=== PATIENT | female | born 1965 | race Caucasian/White ===

== ENCOUNTER → 2016-10-20 | Outpatient (CLI) | payer OTHER ==
[~2016-10-20] MED LIST: ASPIRIN (CHILDR81 MG PO; BRILINTA90 MG PO; LIPITOR80 MG PO; LOPRESSOR25 MG PO; METFORMIN HCL500 MG PO; THERAGRAN-M1 TAB PO
== END | disposition disaster alternative care site (69) ==
LOC: GBCOE 09:11
DX: Z12.31 Encounter for screening mammogram for malignant neoplasm of breast (principal)
CPT/HCPCS: G0202

== ENCOUNTER 2017-03-19 21:17 | Inpatient (IN) | payer OTHER ==
[~2017-03-19] VITALS: Ht 167.6 cm; Wt 74.4 kg
--- NOTE | ~2017-03-19 | ECHO ---
Transthoracic Echocardiography Report (TTE) Demographics Patient Name LATISHA HURD Date of Study 03/20/2017 Patient Number [id number] Visit Number [id number] Date of 1965 Room Number G6328 Gender Female Number Age 52 year(s) Referring Jasper Chavarria MD Forming Process Worker Anca Amador RVT Physician Shahid Cabello MD Physician Interpreting Erasmo Guzman Asbestos Wire Finisher Physician Gisella ANNE Supervising Ordering MD/MLP Physician Nurse Stress Us Administrative Law Judge Conclusions Contractility Score Summary Normal Left Ventricular contractility was noted. Summary The estimated left ventricular ejection fraction is 50-55%. Normal left ventricle size and function. Diastolic assessment reveals normal relaxation. Trivial pericardial effusion measuring .43 cm. Procedure Type of Study TTE procedure:2D Echocardiogram. Procedure Date Date: 03/20/2017 Start: 07:55 AM Study Location: Inpatient Portable Technical Quality: Adequate visualization Indications:Chest pain. Appropriate Use Criteria: 9 Patient Status: Routine HR: 61 bpm BP: 147/81 mmHg Allergies - Cephalosporines. - Latex. M-Mode/2D Measurements LV Diastolic Dimension: 4.01 cm LV Systolic Dimension: 2.82 cm LV Septum Diastolic: 1.12 cm LV PW Diastolic: 0.92 cm AO Root Dimension: 2 cm Cardiac Output: 3.24 l/min LA Dimension: 2.3 cm LVOT: 2 cm LVOT VTI: 16.9 cm RV Base: 2.64 cm LV Stroke volume: 53.07 ml RV Length: 6.01 cm TAPSE: 1.97 cm TDI-S': 13.7 cm/s Doppler Measurements AV Peak Velocity: 1.53 m/s MV Peak E-Wave: 0.63 m/s AV Peak Gradient: 9.36 mmHg MV Peak A-Wave: 0.45 m/s AV Mean Gradient: 4 mmHg MV E/A Ratio: 1.38 LVOT Peak Velocity: 0.71 m/s MV P1/2t: 122 msec PV Peak Velocity: 0.91 m/s E' Septal Velocity: 0.07 m/s PV Peak Gradient: 3.31 mmHg E' Lateral Velocity: 0.15 m/s A' Septal Velocity: 0.11 m/s A' Lateral Velocity: 0.09 m/s Findings Left Ventricle Normal left ventricle size and function. Diastolic assessment reveals normal relaxation. Right Ventricle Normal right ventricle structure and function. Left Atrium Normal left atrial size. Right Atrium IVC measures 1.27 cm with inspiratory collapse. Mitral Valve Normal mitral valve structure and function. Aortic Valve Normal aortic valve structure and function. Tricuspid Valve Normal tricuspid valve structure and function. Pulmonic Valve Normal pulmonic valve structure and function. Pericardial Effusion Trivial pericardial effusion measuring .43 cm. Miscellaneous Visualized portions of the aortic root and ascending aorta appear normal in size. Pleural Effusion No evidence of pleural effusion. Contractility Score LV regional wall motion:(0-Non visualized 1-Normal 2-Hypokinesis 3-Akinesis 4-Dyskinesis 5-Aneurysm) Signature dtt: Opal Zimmerman dtd: 03/20/17 0755 Physician Self Edit
--- NOTE | ~2017-03-19 | CATH ---
Cardiac Diagnostic + PCI Report Demographics Patient Name VANNESSA Singh Gender Female Date of 1965 Age 52 year(s) Patient Number [id number] Date of Study 03/20/2017 Visit Number [id number] Room Number G6[address] [place] [id number] Ht 167.64 cm Wt 76 kg Referring Jasper Chavarria MD Primary Physician Physician Performing Kevin Secondary Physician Physician Mae ANNE Diagnostic Kevin Assisting Physician Physician Mae ANNE Interventional Kevin Physician Shucker Physician Mae ANNE Findings and Conclusions Diagnostic Findings and Conclusion Severe 1 vessel CAD RCA 99% Diagnostic Recommendations PCI RCA Interventional Findings and Conclusion PCI RCA 99% to 0% with ÁNGELA and fernando 3 flow Interventional Recommendations DAPT x 1 yr Aggressive secondary measures Evaluate significance of LCFX/OM lesion in 3 months Procedure Description The patient was brought to the diagnostic cardiac catheterization-EP laboratory in the fasting, non-sedated state. Informed consent was obtained in the written and verbal form after the risks and benefits were explained. The patient had no further questions and agreed to proceed. The planned puncture-incision site(s) were shaved and prepped with ChloraPrep and draped in the usual sterile manner. Conscious sedation, supplemental oxygen, and pain control medications were delivered by a registered nurse under physician guidance. Surface ECG rhythm, blood pressure measurement, and pulse oximetry were monitored throughout the procedure. Arterial access. The access site was infiltrated with lidocaine. The vessel was entered with the Seldinger technique. A sheath was advanced into the vessel and used for catheter placement. Selective left coronary angiography. A catheter was advanced into the left coronary vessel ostium under Fluoroscopic guidance. Contrast was injected by hand. Images were obtained in multiple projections. Selective right coronary angiography. A catheter was advanced into the right coronary vessel ostium under fluoroscopic guidance. Contrast was injected by hand. Images were obtained in multiple projections. Left heart catheterization. A catheter was advanced across the aortic valve to the left ventricle under fluoroscopic guidance. Resting hemodynamics were obtained. Stent Placement: A guiding catheter was used to intubate the vessel. A 0.14 wire was used to cross the lesion. A Drug Eluting Stent was placed. Post placement angiograms were performed. Arterial artery hemostasis was achieved. The patient was transferred to a regular nursing floor via cart accompanied by a nurse. The patient left the laboratory in stable condition. Diagnostic Cath Status: Urgent Interventional Cath Status: Urgent Procedure Procedure Type Diagnostic procedure:Angiography:, Coronary Angios /[facility] PCI procedure:Drug Eluting Coronary Stent:, RCA Indications: NSTEMI and Abnormal enzymes. The procedure was explained in detail to the patient. Risks, complications and alternative treatments were reviewed. Written consent was obtained. Medications Reviewed with Patient prior to Procedure. Angiographic Findings Dominance: Right Cardiac Arteries and Lesion Findings LMCA: Abnormal.luminal irregularities LAD: Abnormal.Type 1 vessel with luminal irregularities D1 larger than LAD, Distal 1/3 LAD is very small LCx: Abnormal.Prox 20% After 2 small OM's 60% Lesion on Prox CX: Proximal subsection.20% stenosis . Lesion on Mid CX: Mid subsection.60% stenosis . RCA: Abnormal.Prox 99% Fernando 3 Lesion on Prox RCA: Proximal subsection.99% stenosis 28 mm length reduced to 0%. Pre procedure FERNANDO III flow was noted. Post Procedure FERNANDO III flow was present. The guidewire cross was successful.A poor run off was present.The lesion was diagnosed as a high risk lesion.Culprit lesion. Devices used - Luge Wire .014 x 182. Number of passes: 1. - Emerge Balloon 2.5 x 20. 1 inflation(s) to a max pressure of: 10 elizabeth. - Promus Premier 3.0 x 28 Stent. 1 inflation(s) to a max pressure of: 16 elizabeth. - NC Emerge Balloon 3.25 x 12. 2 inflation(s) to a max pressure of: 20 elizabeth. Coronary Tree Procedure Data Procedure Date Date: 03/20/2017Start: 02:23 PMEnd: 03:14 PM Entry Locations - Retrograde Percutaneous access was performed through the Right Femoral artery (Primary location). A 7 Fr sheath was inserted. Hemostasis was successfully obtained using Perclose ProGlide (Correa). Closure Comments: deployed by eliane. Procedure Medications Order and Administration + + + + + !Time !Medication !Dosage !Route ! + + + + 03/20/2017 02:20 !Versed !1 mg !I.V. ! !PM ! ! ! ! + + + + + !03/20/2017 02:23 !Fentanyl !25 mcg !I.V. ! !PM ! ! ! ! + + + + + !03/20/2017 02:34 !Aggrastat (Tirofiban) !1875 !I.V. bolus ! !PM ! ! ! ! + + + + + 03/20/2017 02:34 !Heparin (ACC_3) !4500 units !I.V. bolus ! !PM ! ! ! ! + + + + + 03/20/2017 02:38 !Aggrastat (Tirofiban) !0.15 mcg/kg/min!I.V. drip ! !PM ! ! ! ! + + + + + !03/20/2017 03:06 !Heparin (ACC_3) ! !I.V. drip ! !PM ! ! ! ! + + + + + !03/20/2017 03:06 !Brilinta (Ticagrelor) !180 mg !P.O. ! !PM !(ACC_20) ! ! ! + + + + + Devices Used - A6 Fr. BS JR 4 Diag. Catheterwas used for:Right coronary angiography. - A6 Fr. BS JL 4 Diag. Catheterwas used for:Left coronary angiography. - A6 Fr. JR4 Guide Catheterwas used for:RCA Intervention. Contrast Material - Isovue [id number] ml Fluoroscopy Time: Diagnostic: 9:30 minutes. Total: 9:30 minutes. Fluoroscopy Dose: Diagnostic: 1770 mGy. Total: 1770 mGy. Estimated Blood Loss: 20 ml. Additional [facility] PCI Information PCI Indication:PCI for high risk Non-STEMI or unstable angina. Medical History Allergies - Cephalosporines. - Latex. Risk Factors The patient risk factors include:hypercholesterolemia, diet-treated diabetes mellitus, last creatinine: 0.6 mg/dl, creatinine clearance: 133.09 ml/min and dyslipidemia. Admission Data Admission Date: 03/20/2017 Admission Time: 12:35 AM Admit Source: Emergency department Clinical Evaluation Leading to Procedure - The patient's CAD presentation was assessed as: Non-STEMI. - The patient's anginal syndrome during the past two weeks was assessed as: Class IV according to the [place] Cardiovascular Society Classification System (CCS). [facility] Ventriculography Findings LVEDP 9 no gradient Hemodynamics Condition: Rest O2 Consumption: Estimated: 177.89Heart Rate: 65 bpm Pressures (mmHg) +-----+ + !Site !Pressure ! +-----+ + !LV !131/1 ,7 ! +-----+ + !LV !147/1 ,9 ! +-----+ + !AO !137/65 (97) ! +-----+ + !LV !140/-1 ,8 ! +-----+ + !AO !144/74 (103) ! +-----+ + !AO !162/66 (103) ! +-----+ + Valve Gradients and Areas + +---------+---------+---------+ +---------+ + !Valve !Peak !Mean !Area !Index !Flow !Source ! + +---------+---------+---------+ +---------+ + !Aortic !2 !0 ! ! ! ! ! + +---------+---------+---------+ +---------+ + !Aortic !2 !0 ! ! ! ! ! + +---------+---------+---------+ +---------+ + Shunts Oxygen Values O2 Capacity 184.96 O2 Consumption 177.89 Discharge Data Discharge Date: 03/21/2017 Hospital Status: Inpatient Signatures dtt: Mae Brown dtd: 03/20/17 1423 Physician Self Edit
--- NOTE | ~2017-03-19 | ER ---
PATIENT'S NAME: LATISHA HURD [facility] AGE: 52 Y [address] ROOM: [place] [address] LOCATION: GPCU ADMIT DATE: 03/20/2017 ER/Outpatient Report DISCHARGE DATE: FAMILY PHYSICIAN: Ana Hutchinson MD ATTENDING PHYSICIAN: HUSSEIN KEY Admission date and time documented in medical record. I saw the patient at 2125 hours. CHIEF COMPLAINT: Mid anterior chest pain radiating through to her back into her shoulders bilaterally accompanied with shortness of breath, diaphoresis, and nausea. HISTORY OF PRESENT ILLNESS: The patient is a 52-year-old female, who was at home, developed mid anterior chest pain radiating through to her mid back between her shoulder blades and up into both shoulders. This started about 45 minutes prior to admission in the emergency room. She said it was an 8/10. Had accompanying nausea without vomiting. Some shortness of breath, diaphoresis, lightheadedness, or dizziness. No syncope or near syncope. No fall or trauma. No headache; eyes, ears, nose, throat, neck, or spine pain. No recent colds, coughs, flus, fever, chills, or sweats. No abdominal pain. No diarrhea. No urinary symptoms. No joint or muscle swelling, redness, or pain. No skin eruptions or rash. Does have a history of pgs-cvmtuvs-wtnqteqrn diabetes mellitus, hyperparathyroidism. No neuro changes or psych issues. HOME MEDICATIONS: None. ALLERGIES: KEFLEX, VICODIN, BEE STINGS. SOCIAL HISTORY: Nonsmoker. Occasional intake of alcohol. 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 OPERATIONS: Tonsillectomy, adenoidectomy, back surgery, eye surgery, right breast lumpectomy, lumbar laminectomy incision, parathyroid adenoma. REVIEW OF SYSTEMS: PATIENT'S NAME: LATISHA HURD [facility] AGE: 52 Y [address] ROOM: [place] [address] LOCATION: GPCU ADMIT DATE: 03/20/2017 ER/Outpatient Report DISCHARGE DATE: FAMILY PHYSICIAN: Ana Hutchinson MD ATTENDING PHYSICIAN: HUSSEIN KEY All systems reviewed by me are negative with the exception of those discussed in the history of present illness. PHYSICAL EXAMINATION: VITAL SIGNS: Temperature 95.1, pulse 64, respirations 14, blood pressure 176/89, O2 sat on room air is 98%. HEAD: Normocephalic. EYES: Extraocular muscles intact. PERRL. Sclerae and conjunctivae clear, nonicteric. EARS, NOSE, THROAT: Clear. Mucous membranes moist. TEETH/JAW: Intact. NECK: No nuchal rigidity. No findings of adenopathy. No carotid bruits. No tenderness. SPINE: Nontender. No deformity. LUNGS: Clear. Good air flow. No rales, rhonchi, or wheezes. HEART: Regular. Pulses are palpable. No chest wall or ribcage pain to palpation. No deformity. ABDOMEN: Soft, nondistended, nontender. Good bowel tones. No organomegaly or abnormal mass palpable. PELVIS: Stable. EXTREMITIES: No peripheral edema, cyanosis, or deformity. NEUROVASCULAR: Intact. SKIN: Clear. No skin eruptions or rash. DIAGNOSTIC DATA: EKG showed sinus rhythm. No acute ST elevation, ischemic change, or arrhythmia x2, 2 hours apart. CMS was normal except for an elevated glucose at 215, elevated AST 103, elevated ALT 112. Magnesium is 2. CPK initially was 239, 2 hours later was 195. Initial CK-MB was elevated at 5.3, decreased in 2 hours to 4.5. Initial troponin was normal, less than 0.04. Two-hour troponin was elevated at 0.073. CRP was 1.05. TSH was 3.01. ProBNP was 64. D-dimer was normal at 0.19. White count is 7800, 42 segs, 48 lymphs, 6-7 monos, 2 eos, 1 baso. Hemoglobin is 14.9, hematocrit 42.1, platelet count is 500941. PTT was 22, pro-time is 10.8 with an INR of 1.03. Procalcitonin was less than 0.05. Lactate was 2.5. Venous pH was 7.4. The patient's pain dissipated without any treatment here in the emergency room to 0 from 8/10. With elevation of her troponin in 2 hours, we did start her on heparin IV per cardiac protocol. We did give her Lipitor 80 mg orally here in the emergency department, 4 baby aspirin orally. We did not start nitroglycerin because her pain is gone. She is having no mid back pain or shoulder pain at this time. No shortness of breath or diaphoresis. IMPRESSION: 1. Non ST-elevation myocardial infarction with elevation of troponin at 2- hour interval at 0.073. She has no EKG changes. No history of known PATIENT'S NAME: LATISHA HURD [facility] AGE: 52 Y [address] ROOM: [id number] [place] [id number] [facility] ADMIT DATE: 03/20/2017 ER/Outpatient Report DISCHARGE DATE: FAMILY PHYSICIAN: Ana Hutchinson MD ATTENDING PHYSICIAN: HUSSEIN KEY coronary artery disease. She has risk factors including non-insulin- dependent diabetes mellitus and strong family history of heart disease. The patient is a nonsmoker. 2. Ber-cbdyxwl-crkikegdj diabetes mellitus type 2. 3. Dyslipidemia. 4. Hyperparathyroidism, status post excision of parathyroid adenoma. PLAN: I did discuss the patient with Dr. Key, the hospitalist. Dr. Key is coming to the emergency room to evaluate the patient. We will proceed on his recommendations. The patient will be admitted to PCU telemetry. We will need further cardiac evaluation. Discussion ensued with the patient concerning my findings and recommendations, she understands. Accumulated critical care time 30 minutes. MD DANA SINGH/modl /[id number] d: 03/20/17121 t: 03/20/17 181, OUTPATIENT REPORT
--- NOTE | ~2017-03-19 | DS ---
PATIENT'S NAME: SAKINA HURD [facility] AGE: 52 Y [address] ROOM: [place] [address] LOCATION: GPCU ADMIT DATE: 03/20/2017 Discharge Summary DISCHARGE DATE: 03/21/2017 FAMILY PHYSICIAN: Ana Hutchinson MD ATTENDING PHYSICIAN: Tessy Key REASON FOR ADMISSION: Chest pain. PRINCIPAL DIAGNOSIS: Ybl-OS-lylquykbh myocardial infarction. SECONDARY DIAGNOSES: 1. Diabetes type 2, poorly-controlled with A1c of 8.2. 2. Hypokalemia. 3. Mitochondrial myopathy. 4. Family history of coronary artery disease. 5. Hypertriglyceridemia. PROCEDURES DURING STAY: 1. Echocardiogram March 20 showing ejection fraction of 50% to 55%. Normal left ventricular size and function with normal diastolic function. No other significant findings. 2. Left heart catheterization also performed March 20 showing 95% occlusion of the right coronary artery, status post PCI. PENDING LABS AND TESTS AT THE TIME OF DISCHARGE: None. HOSPITAL COURSE: Sakina is a very pleasant 52-year-old female with minimal past medical history, takes only multivitamin at home, recently was diagnosed with type 2 diabetes with an A1c of 8.2, attempting dietary control who presented to the emergency department with chest pain, starting about 8 p.m. on March 19, located in the center of her chest, dull, sudden in onset with radiation to shoulders and back, and associated with diaphoresis and shortness of breath. She had never had any symptoms such as this before. She was found to have troponin elevated to max of 1.4. An EKG initially did show sinus bradycardia with Q-waves in the inferior leads as well as T-wave inversions in lead III. The patient was admitted and started on ACS protocol with aspirin, heparin, Lipitor, and troponins were trended. Later in the day of admission, the patient underwent the echocardiogram shown above and also the left heart catheterization, which showed 95% RCA occlusion and was stented. The patient tolerated stenting well, was started on Brilinta in addition to aspirin for dual antiplatelet therapy, will plan for 1 year. The patient was chest pain-free on date of discharge, and had done well post-heart cath. She will be discharged on atorvastatin 80 mg, aspirin 81 mg daily., metoprolol tartrate 12.5 mg p.o. b.i.d., ticagrelor (Brilinta) 90 mg p.o. b.i.d., as well as metformin 500 mg p.o. b.i.d., to start on date of discharge. Hospital course PATIENT'S NAME: SAKINA HURD [facility] AGE: 52 Y [address] ROOM: [place] [address] LOCATION: GPCU ADMIT DATE: 03/20/2017 Discharge Summary DISCHARGE DATE: 03/21/2017 FAMILY PHYSICIAN: Ana Hutchinson MD ATTENDING PHYSICIAN: Tessy Key was otherwise uneventful and uncomplicated and the patient was discharged home. MEDICATIONS AND PERTINENT CHANGES: As noted above per ACS protocol. CONSULTANTS: Cardiology, Dr. Alberto and Dr. Lopez both saw. CONDITION ON DATE OF DISCHARGE: VITAL SIGNS: Last vital signs temp 97.5, pulse 71, respirations 16, blood pressure 140/86, and saturating 97% on room air. GENERAL: No acute distress, up ambulating, just returning to room at time of my examination. CARDIOVASCULAR: Regular rate and rhythm. No murmurs, rubs, or gallops appreciated. Equal 2+ bilateral pulses. No groin hematoma appreciated. RESPIRATORY: Clear to auscultation bilaterally. Normal effort on room air. ABDOMEN: Soft, nontender, nondistended. EXTREMITIES: Without edema. NEUROLOGIC: Alert and oriented. DISCHARGE INSTRUCTIONS: The patient is discharged home on cardiac diet with carbohydrate control. Activity as tolerated. To follow up with Dr. Alberto in 3 to 4 weeks as well as PCP in 1 week. Time spent on discharge including direct patient care and coordination discharge activities is 25 minutes. MD RAVI VALDES/estelal /[id number] d: 03/22/17 0126 t: 03/22/17 0741, DISCHARGE SUMMARY
--- NOTE | ~2017-03-19 | HP ---
PATIENT'S NAME: ROSS [facility] AGE: 52 Y [address] ROOM: [place] [id number] LOCATION: GPCU ADMIT DATE: 03/20/2017 History & Physical DISCHARGE DATE: FAMILY PHYSICIAN: Ana Hutchinson MD ATTENDING PHYSICIAN: HUSSEIN KNOTT DATE OF SERVICE: CHIEF COMPLAINT: Chest pain. HISTORY OF PRESENT ILLNESS: A 52-year-old lady with a past medical history of mitochondrial myopathy as well as recently diagnosed type 2 diabetes, not on any therapy for that, presented to the emergency department with a chest pain, which started about 8 p.m., located in the center of the chest, dull, achy, 8/10, sudden in onset, radiating to the both shoulders as well as to the back, associated with diaphoresis, shortness of breath, relieved on its own on arrival to the emergency department, not associated with any nausea or vomiting. On further inquiry, she never had these kind of symptoms before. She denied any trouble breathing right now, no palpitations, no headache, no trouble swallowing, no trouble with the eyes, no abdominal pain, constipation, diarrhea, PND, orthopnea, or leg swelling. REVIEW OF SYSTEMS: All other systems reviewed and were negative except what is mentioned in the HPI. PAST MEDICAL HISTORY: Mitochondrial myopathy as well as type 2 diabetes mellitus. MEDICATIONS: No home medications. ALLERGIES: NO KNOWN DRUG ALLERGIES. SOCIAL HISTORY: Never a smoker. No alcohol or drug abuse. FAMILY HISTORY: Significant for coronary artery disease, but no premature coronary artery disease reported. PHYSICAL EXAMINATION: PATIENT'S NAME: ROSS [facility] AGE: 52 Y [address] ROOM: [id number] [place] [id number] LOCATION: GPCU ADMIT DATE: 03/20/2017 History & Physical DISCHARGE DATE: FAMILY PHYSICIAN: Ana Hutchinson MD ATTENDING PHYSICIAN: HUSSEIN KNOTT VITAL SIGNS: Blood pressure 146/98, 62, afebrile, 16, and satting 98% on room air. GENERAL: No acute distress. Alert and oriented x3. HEENT: Head: Atraumatic, normocephalic. Eyes: Nonicteric. No pallor. Oropharynx: Moist mucous membranes. CARDIOVASCULAR: S1, S2. No murmurs, gallops, or rubs. LUNGS: Clear to auscultation bilaterally. ABDOMEN: Soft, nontender, nondistended. Bowel sounds present. EXTREMITIES: No clubbing, cyanosis, or edema. PSYCH: Normal affect, mood, and speech. NEURO: Ptosis of the bilateral eyes noted. Strength in all extremities 4/5. MUSCULOSKELETAL: No muscle tenderness or joint swelling noted. ENDOCRINE: No thyromegaly or lymphadenopathy noted. LABORATORY DATA: Chest x-ray done in the emergency department was negative for an acute intrathoracic changes. EKG done showed sinus bradycardia with Q-waves in the inferior lead as well as T-wave inversions in the lead III. Initial set of troponin was negative, but after 2 hours, the troponins got elevated to 0.073. CBC was unremarkable, BMP was remarkable for a glucose of 215, and AST and ALT 103 and 112. Of note, CPK was not elevated, CK-MB 5.3 and 4.5. Procalcitonin less than 0.05. ASSESSMENT: 1. Gfl-KQ-ntamhhmel myocardial infarction. 2. Mitochondrial myopathy. 3. Type 2 diabetes. PLAN: We are going to admit this lady. She will be started on an ACS protocol. Aspirin, heparin, and Lipitor will be administered. Serial EKGs will be done. We will keep an eye on the chest pain and repeat EKG if necessary. A q.6 h. troponin will be done. Echocardiography will be done in the morning. Cardiology consult in the morning. Sliding scale insulin, HbA1c, lipid profile. SCDs, n.p.o. except medications and water now. Further management will depend on her progress in the hospital. MD ENEDELIA BERGERON/shira PATIENT'S NAME: LATISHA HURD [facility] AGE: 52 Y [address] ROOM: [place] [address] [facility] AD[facility] DATE: 03/20/2017 History & Physical DISCHARGE DATE: FAMILY PHYSICIAN: Ana Hutchinson MD ATTENDING PHYSICIAN: HUSSEIN KNOTT /[id number] D: 107 T: [id number] HISTORY & PHYSICAL
--- NOTE | ~2017-03-19 | CON ---
PATIENT'S NAME: SAKINA TORRES [facility] AGE: 52 Y [address] ROOM: [id number] [place], [place] [id number] LOCATION: GPCU ADMIT DATE: 03/20/2017 Consultation DISCHARGE DATE: FAMILY PHYSICIAN: Ana Hutchinson MD ATTENDING PHYSICIAN: HUSSEIN KNOTT DATE OF CONSULTATION: 03/20/2017 REFERRING PHYSICIAN: Mae Brown MD Dear colleagues: Thank you for asking me to see Sakina who is a 52-year-old female patient who developed about an hour worth of chest pain, which was located in the front of chest radiating through to the back, fairly dull, and to the shoulders, associated with sweating, shortness of breath which went away. She was seen in the emergency room. She was hospitalized. Initial set of EKG and enzymes were unremarkable and her enzymes have since gone up consistent with a non-ST- segment elevation [place]. After the 1 hour of chest pain, she has not had any pains now and she has never had any chest pains before. The patient has history of mitochondrial myopathy and has been relatively active at home. Denies any chest pains up until through yesterday. She has no history of shortness of breath. She is in functional class 2-3 with no paroxysmal nocturnal dyspnea or orthopnea. She has no history of lightheadedness, dizziness, syncope, presyncope, palpitations, or ankle swelling. The patient has history of type 2 diabetes and elevated cholesterol. She has no history of hypertension. She never smoked and there is no family history of premature coronary artery disease. There is no history of rheumatic fever, heart murmur, heart failure, dilated or enlarged heart or any diagnosed cardiac arrhythmias. MEDICATIONS: Home medications are multivitamins. ALLERGIES: CEPHALOSPORINS, CEPHALEXIN AND LATEX. PAST MEDICAL HISTORY: 1. Mitochondrial myopathy diagnosed about 3 years ago. 2. 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 3. History of hyperparathyroidism with removal of 2 glands. 4. Multiple headaches. PATIENT'S NAME: SAKINA TORRES [facility] AGE: 52 Y [address] ROOM: [id number] [place], [place] [address] LOCATION: GPCU ADMIT DATE: 03/20/2017 Consultation DISCHARGE DATE: FAMILY PHYSICIAN: Ana Hutchinson MD ATTENDING PHYSICIAN: HUSSEIN KNOTT 5. History of DVT. 6. Tonsillectomy and adenoidectomy. 7. Back surgery. 8. Eye surgery. 9. Right breast lumpectomy. 10. Lumbar laminectomy. SOCIAL HISTORY: The patient denies abusing alcohol. Her appetite and weight are stable. Sleep is fair. FAMILY HISTORY: No premature coronary artery disease. REVIEW OF SYSTEMS: 1. She has been tested for sleep apnea and was found to be negative. 2. Migraines. 3. Sinus problems. 4. History of rosacea. PHYSICAL EXAMINATION: VITAL SIGNS: On examination, her blood pressure is 130/80, heart rate is in the 70s and regular, respiration is 18, afebrile. HEENT: Normal. NECK: Supple with no JVD, thyromegaly, lymphadenopathy, or carotid bruit. HEART: PMI is not well located. First and second heart sounds are regular. There are no added sounds or murmurs. CHEST: Clear to auscultation. ABDOMEN: Soft. EXTREMITIES: Reveal no edema. CENTRAL NERVOUS SYSTEM: Intact except for the myopathy which has left her weak in her upper extremities to some extent, mostly. ASSESSMENT: A 52-year-old female patient with diabetes and elevated cholesterol and mitochondrial myopathy presenting with acute [id number] elevation myocardial infarction for the first time. Currently, she is pain free. RECOMMENDATIONS: We will go ahead with cardiac catheterization and do PCI. She had an allergy to contrast dye 30 years ago. Since then, she has had dye given to her for her CT scan which has not bothered her. Again, I appreciate this opportunity to participate in the care of Ms. Torres. PATIENT'S NAME: SAKINA TORRES [facility] AGE: 52 Y [address] ROOM: [place] [address] LOCATION: [facility] ADMIT DATE: 03/20/2017 Consultation DISCHARGE DATE: FAMILY PHYSICIAN: Ana Hutchinson MD ATTENDING PHYSICIAN: HUSSEIN KNOTT MD PARISH HOLT/shira MACKAY: 03/20/2017 13:17:52 /[id number] d: 03/20/17 1813 t: 03/25/17 1209, CONSULTATION REPORT
[2017-03-19 21:36] LABS: BASOPHIL # 0.1 K/uL (0.0-0.2); BASOPHIL % 0.9 %; EOSINOPHIL # 0.1 K/uL (0.0-0.5); EOSINOPHIL % 1.7 %; HEMATOCRIT 42.1 % (33.0-46.0); HEMOGLOBIN 14.9 g/dL (10.0-15.0); IMMATURE GRANULOCYTE # 0.1 K/uL (0.0-0.3); IMMATURE GRANULOCYTE % 0.8 %; LYMPHOCYTE # 3.8 K/uL (0.8-4.0); LYMPHOCYTE % 48.3 %; MCH 31.4 pg (27.0-34.0); MCHC 35.4 gm/dL (32.0-36.5); MCV 88.6 fl (83.0-98.0); MONOCYTE # 0.5 K/uL (0.0-1.0); MONOCYTE % 6.6 %; MPV 10.7 fl (9.4-12.4); NEUTROPHIL # (ANC) 3.3 K/uL (1.8-7.8); NEUTROPHIL % 41.7 %; NRBC % 0 /100WBC (0-0.00); PLATELET COUNT 206 K/uL (150-450); RBC 4.75 M/uL (3.50-5.50); RDW-CV 12.5 % (11.9-14.6); WBC 7.8 K/uL (4.0-11.0)
[2017-03-19 21:53] LABS: INR - (THERAPEUTIC) 1.03 (0.92-1.07); PROTIME 10.8 SECONDS (9.8-11.4); PTT 22 SECONDS (25-32)
[2017-03-19 21:54] LABS: BICARBONATE 26.6 mmol/L (18.0-23.0); LACTATE 2.7 mEq/L (0.50-1.60); PCO2 43 mmHg (35-45); PO2 31 mmHg (80-90)
[2017-03-19 21:55] LABS: ALBUMIN 4.3 gm/dL (3.5-5.0); ALK PHOS 74 IU/L (33-138); ALT 112 IU/L (12-78); ANION GAP 16.6 (10.0-19.0); AST 103 IU/L (10-40); BLOOD UREA NITROGEN 14 mg/dL (6-24); CALCIUM 9.5 mg/dL (8.5-10.5); CHLORIDE 102 mMol/L (96-110); CO2 22 mMol/L (22-32); CPK 239 IU/L (21-215); CREATININE 0.9 mg/dL (0.5-1.1); POTASSIUM 3.6 mMol/L (3.7-5.1); SODIUM 137 mMol/L (135-145); TOTAL BILIRUBIN 0.6 mg/dL (0.0-1.5); TOTAL PROTEIN 8.6 g/dL (6.0-8.4)
[2017-03-20 05:56] LABS: BASOPHIL % 0.7 %; EOSINOPHIL # 0.1 K/uL (0.0-0.5); HEMATOCRIT 38.2 % (33.0-46.0); HEMOGLOBIN 13.6 g/dL (10.0-15.0); IMMATURE GRANULOCYTE % 0.3 %; LYMPHOCYTE # 2.1 K/uL (0.8-4.0); MCH 30.8 pg (27.0-34.0); MCHC 35.6 gm/dL (32.0-36.5); MCV 86.4 fl (83.0-98.0); MONOCYTE # 0.3 K/uL (0.0-1.0); MONOCYTE % 5.7 %; MPV 10.3 fl (9.4-12.4); NEUTROPHIL # (ANC) 3.4 K/uL (1.8-7.8); NEUTROPHIL % 57.3 %; NRBC % 0 /100WBC (0-0.00); RBC 4.42 M/uL (3.50-5.50); RDW-CV 12.5 % (11.9-14.6); WBC 5.9 K/uL (4.0-11.0)
[2017-03-20 05:57] LABS: PLATELET COUNT 160 K/uL (150-450)
[2017-03-20 06:16] LABS: ANION GAP 12.7 (10.0-19.0); BLOOD UREA NITROGEN 12 mg/dL (6-24); CALCIUM 9.9 mg/dL (8.5-10.5); CHLORIDE 103 mMol/L (96-110); CO2 26 mMol/L (22-32); CREATININE 0.6 mg/dL (0.5-1.1); POTASSIUM 3.7 mMol/L (3.7-5.1); SODIUM 138 mMol/L (135-145)
[2017-03-20] MEDS ORDERED: THERAGRAN-M1 TAB PO (09:34)
[2017-03-21 05:14] LABS: ALBUMIN 3.7 gm/dL (3.5-5.0); ALK PHOS 62 IU/L (33-138); ALT 91 IU/L (12-78); ANION GAP 13.3 (10.0-19.0); AST 76 IU/L (10-40); BLOOD UREA NITROGEN 13 mg/dL (6-24); CALCIUM 8.8 mg/dL (8.5-10.5); CHLORIDE 104 mMol/L (96-110); CO2 27 mMol/L (22-32); CREATININE 0.6 mg/dL (0.5-1.1); POTASSIUM 3.3 mMol/L (3.7-5.1); SODIUM 141 mMol/L (135-145); TOTAL PROTEIN 7.4 g/dL (6.0-8.4)
[2017-03-21 05:18] LABS: TOTAL BILIRUBIN 0.9 mg/dL (0.0-1.5)
[2017-03-21] MEDS ORDERED: ASPIRIN (CHILDR81 MG PO (10:50)
[2017-03-21] MEDS ORDERED: LIPITOR80 MG PO (10:51)
[2017-03-21] MEDS ORDERED: LOPRESSOR25 MG PO (10:53)
[2017-03-21] MEDS ORDERED: BRILINTA90 MG PO (10:54)
[2017-03-21] MEDS ORDERED: METFORMIN HCL500 MG PO (10:55)
== END 2017-03-21 13:15 | disposition disaster alternative care site (69) | DRG 247 ==
LOC: GMED 21:17 → GPCU 03-20 00:35
PROVIDERS: Emergency Medicine; Internal Medicine Interventional Cardiology; ADMIT Internal Medicine
DX: I21.4 Non-ST elevation (NSTEMI) myocardial infarction (principal); E11.65 Type 2 diabetes mellitus with hyperglycemia; G71.3 Mitochondrial myopathy, not elsewhere classified; E87.6 Hypokalemia; E78.1 Pure hyperglyceridemia; Z82.49 Family history of ischemic heart disease and other diseases of the circulatory system; I25.10 Atherosclerotic heart disease of native coronary artery without angina pectoris; Z86.718 Personal history of other venous thrombosis and embolism; Z79.01 Long term (current) use of anticoagulants; G43.909 Migraine, unspecified, not intractable, without status migrainosus
CPT/HCPCS: C1725; C1760; C1769; C1874; C1887; C9600; J1200; J1644; J1720; J2250; J3010; J3246; J7030